=== PATIENT | male | born 1980 | race African-American/Black ===

== ENCOUNTER 2018-09-10 07:14 | Inpatient (IN) | payer SELFPAY ==
[~2018-09-10] VITALS: Ht 182.9 cm; Wt 92.8 kg
--- NOTE | 2018-09-10 07:25 | NUR ---
OPENING SHIFT NOTE ASSUMED CARE OF PATIENT FROM DAY SHIFT RN AGUILAR. PATIENT IS AWAKE LAYING IN BED WITH EVEN AND UNLABORED RESPIRATIONS. NO S/S OF DISTRESS OR PAIN AT THIS TIME. FAMILY IS AT BEDSIDE. INSTRUCTED ON POC. BED IS LOW, LOCKED, SIDE RAILS UP X2, AND CALL LIGHT IS IN REACH. PATIENT INSTRUCTED TO CALL PRN. WILL CONTINUE TO MONITOR.
[2018-09-10] MEDS ORDERED: KETOROLAC TROMETH 60MG/2ML VIAL IM ONE (08:15)
[2018-09-10] MEDS ORDERED: METHOCARBAMOL 500 MG TAB PO ONE (09:30)
[2018-09-10] MEDS ORDERED: ACETAMINOPHEN 500 MG TAB PO ONE (09:30)
[2018-09-10] MEDS ORDERED: SODIUM CHLORIDE 0.9% 500 ML IV ONE (09:46)
[2018-09-10] MEDS ORDERED: ONDANSETRON HCL 4 MG/2 ML VIAL IV ONE (10:00)
[2018-09-10] MEDS ORDERED: HYDROmorphone HCL 2 MG/ML VL IV ONE (10:00)
[2018-09-10 10:15] LABS: Basophils # (auto) 0.1 uL; Basophils % (auto) 0.7 % (0.0-2.0); Eosinophils # (auto) 0.1 uL; Eosinophils % (auto) 1.2 % (0.0-7.0); Hematocrit 45.9 % (41.0-53.0); Hemoglobin 15.5 g/dL (13.5-17.5); Lymphocytes # (auto) 1.4 uL; Lymphocytes % (auto) 14.7 % (10.0-50.0); Mean Corpuscular Hgb Conc. 33.8 g/dL (32.0-36.0); Mean Corpuscular Volume 94.7 fL (80.0-100.0); Monocytes # (auto) 1.4 uL; Monocytes % (auto) 14.7 % (0.0-12.0); Neutrophils # (auto) 6.5 uL; Neutrophils % (auto) 68.7 % (37.0-80.0); Nucleated Red Blood Cells % 0.2 %; Platelet Count (auto) 107 10^3/uL (140-450); Red Blood Cells 4.85 10^6/uL (4.5-5.90); Red Cell Distribution Width 13.8 % (11.8-14.3); White Blood Cell 9.4 10^3/uL (4.4-10.8)
[2018-09-10 10:31] LABS: INR 0.9 (0.9-1.15); Partial Thromboplastin Time 32.7 sec (23.78-33.04); Prothrombin Time 9.7 sec (9.27-12.13)
[2018-09-10 10:33] LABS: Potassium 4.1 mmol/L (3.5-5.1)
[2018-09-10 10:40] LABS: Albumin 4.6 g/dL (3.4-5.0); BUN/Creatinine Ratio 8.8; Bilirubin, Total 1.1 mg/dL (0.2-1.0); Calcium 8.8 mg/dL (8.5-10.1); Total Protein 8.7 g/dL (6.4-8.2)
[2018-09-10] MEDS ORDERED: ALPRAZolam 0.25 MG TAB PO PRN (11:30)
[2018-09-10] MEDS ORDERED: METHOCARBAMOL 500 MG TAB PO PRN (11:30)
[2018-09-10] MEDS ORDERED: MORPHINE SULFATE 4 MG/ML SYR/VIAL IV PRN (11:30)
[2018-09-10 12:40] VITALS: BP 149/76
[2018-09-10 13:00] VITALS: BP 149/76
[2018-09-10] MEDS: NICOTINE 21MG/24 HR TOPICAL PATCH TD SCH (13:30)
[2018-09-10] MEDS: HYDROcodone-ACET 7.5/325MG TAB PO PRN ×2 (13:31→21:28)
--- NOTE | 2018-09-10 13:40 | NUR ---
CAME FROM ER ON WC, ALERT AND ORIENTED X4, NOT IN DISTRESS, LUNG SOUNDS CLEAR IN BILATERAL UPPER AND LT LOWER LOBES, DIMINISHED IN RT. LOWER LOBE NOTED, RR=18 SAT=94% IN RA, C/O RT. LATERAL LOWER RIBS PIN L=[id number], HEART RAT=82, DENIED SOB REPORTED, ABDOMEN SOFT WITH ACTIVE BS, LAST BM THIS MORNING REPORTED, REGULAR DIET OF LUNCH TRAY WAS PROVIDED, TOLERATED 100%, AMBULATED, NO RESTRICTION NOTED, TOLERATED WELL, SKIN RT. ELBOW, RT. LATERAL THIGH AND RT. KNEE DRY AND INTACT BRUISES NOTED, DENIED PAIN OR DISCOMFORT ON THE BRUISES, VS T=98.3 RR=18 SAT=94%RA ZP=082/76, HEAD OF BED ELEVATED, BED ON LOWER POSITION, RAILS UP X2, CALL LIGHT ON REACH, WILL CONTINUE MONITORING.
[2018-09-10 17:00] VITALS: BP 147/81
--- NOTE | 2018-09-10 19:24 | NUR ---
Not in distress report was given to the commuter train operator RN.
[2018-09-10 22:00] VITALS: BP 134/97
[2018-09-11 05:00] VITALS: BP 163/97
--- NOTE | 2018-09-11 07:12 | NUR ---
CLOSING SHIFT NOTE CARE OF PATIENT TRANSFERRED TO DAY SHIFT. PATIENT IS AWAKE SITTING ON THE EDGE OF THE BED WITH EVEN AND UNLABORED RESPIRATIONS. NO S/S OF DISTRESS OR PAIN AT THIS TIME. BED IS LOW, LOCKED, SIDE RAILS UP X2, AND CALL LIGHT IS IN REACH. PATIENT INSTRUCTED TO CALL FOR ASSISTANCE WHEN GETTING OUT OF BED AND PRN.
--- NOTE | 2018-09-11 08:00 | NUR ---
Opening Shift Note Assumed care of patient, awake, alert and oriented X4. No S/S of distress/SOB, complains of right posterior flank pain, 6/10, Maciel Polanco scale. IV to right forearm, 20 gauge, patent and saline locked. Instructed on POC and to call for assist PRN, verbalized understanding. B4ed locked, in lowest position, call light within reach, will continue to monitor for changes Q1hr and PRN.
[2018-09-11 08:38] VITALS: BP 153/82
[2018-09-11] MEDS: NICOTINE 21MG/24 HR TOPICAL PATCH TD SCH (08:56)
[2018-09-11] MEDS: HYDROcodone-ACET 7.5/325MG TAB PO PRN (09:50)
[2018-09-11 11:51] VITALS: BP 156/79
[2018-09-11 15:12] VITALS: BP 156/79
== END 2018-09-11 16:10 | disposition home or self-care (01) | DRG 200 ==
LOC: ER 07:14 → OVERFLOW 11:20 → WEST WING 12:21
PROVIDERS: ADMIT Nurse Practitioner Acute Care; ATTEND Internal Medicine Pulmonary Disease
DX: S27.0XXA Traumatic pneumothorax, initial encounter (principal); S22.41XA Multiple fractures of ribs, right side, initial encounter for closed fracture; F17.210 Nicotine dependence, cigarettes, uncomplicated; J45.909 Unspecified asthma, uncomplicated; V49.9XXA Car occupant (driver) (passenger) injured in unspecified traffic accident, initial encounter; Y93.89 Activity, other specified; V89.2XXA Person injured in unspecified motor-vehicle accident, traffic, initial encounter; Y92.410 Unspecified street and highway as the place of occurrence of the external cause
CPT/HCPCS: 36415; 71045; 71046; 71101; 73000; 73070; 80053; 85025; 85610; 85730; 94761; 96361; 96374; 96375; G0378; J1885; J2405